=== PATIENT | female | born 1945 | race Caucasian/White ===

== ENCOUNTER 2016-08-11 06:05 | Day surgery (SDC) | payer MEDICARE, BC ==
[2016-08-09 10:50] VITALS: BMI 20.2
[~2016-08-11 06:05] MED LIST: DEXAMETHASONE SOD PHOSPHATE 10 MG/ML 1 ML VIAL IV ONE; HYDROmorphone 1 MG/ML 1 ML SYRINGE IVP PRN; LACTATED RINGERS 1,000 ML IV SCH; MIDAZOLAM 2 MG/2 ML VIAL IV PRN; ONDANSETRON 4 MG/2 ML VIAL IVP ONE; ceFAZolin 2 GM in SODIUM CHLORIDE 0.9% 100 ML IVPB ONE
[2016-08-11 06:23] VITALS: RESP 16
[2016-08-11] MEDS ORDERED: LIDOCAINE 1% 20 ML VIAL (10MG/ML) FOR IV START INTRADERMA ONE (06:46)
[2016-08-11] MEDS ORDERED: MIDAZOLAM 2 MG/2 ML VIAL ONE (07:28)
[2016-08-11] MEDS ORDERED: fentaNYL (PF) 50 MCG/ML 2 ML AMP ONE (07:28)
[2016-08-11] MEDS ORDERED: ROPIVACAINE 5 MG/ML 30 ML VIAL ONE (07:28)
[2016-08-11] MEDS ORDERED: PHENYLEPHRINE-0.9% NACL SYG 1 MG/10 ML SYRINGE ONE (07:28)
[2016-08-11] MEDS ORDERED: PROPOFOL 10 MG/ML 20 ML VIAL IV ONE (07:28)
[2016-08-11] MEDS ORDERED: LIDOCAINE 1% INJ 10MG/ML (20 ML MDV) ONE (07:28)
[2016-08-11] MEDS ORDERED: SUCCINYLCHOLINE CHLORIDE 100 MG/5 ML SYR IV ONE (07:28)
[2016-08-11] MEDS ORDERED: ceFAZolin 1,000 MG in SODIUM CHLORIDE 0.9% 1,000 ML IRRIGATION ONE (08:00)
[2016-08-11] MEDS ORDERED: hydrOXYzine PAMOATE 25 MG CAP PO PRN (08:59)
[2016-08-11] MEDS ORDERED: TEMAZEPAM 15 MG CAP PO PRN (08:59)
[2016-08-11] MEDS ORDERED: HYDROcodone/APAP 5-325MG 1 EACH TAB PO PRN ×2 (08:59)
[2016-08-11] MEDS ORDERED: ONDANSETRON 4 MG/2 ML VIAL IVP PRN (08:59)
[2016-08-11] MEDS ORDERED: HYDROmorphone 1 MG/ML 1 ML SYRINGE IVP PRN ×3 (08:59)
--- NOTE | 2016-08-11 09:08 | FL ---
FLUOROSCOPY 10 of fluoroscopy time were utilized during internal fixation of the right wrist. 2 images document t he procedure.
--- NOTE | 2016-08-11 11:20 | XR ---
FLUOROSCOPY 10 seconds of fluoroscopy time were utilized during internal fixation of the right breast. 2 images d ocument the procedure.
[2016-08-11] MEDS: SENNOSIDES-DOCUSATE SODIUM 1 EACH TAB PO PRN (15:33)
[2016-08-11] MEDS: ceFAZolin 2 GM in SODIUM CHLORIDE 0.9% 100 ML IVPB SCH (15:34)
[2016-08-11] MEDS: LACTATED RINGERS 1,000 ML IV SCH ×2 (15:40→20:27)
--- NOTE | 2016-08-11 17:55 | OP ---
DATE OF SERVICE: 08/11/2016 SURGEON: JI CHANG DO WASTE CHOPPER: Teresita SOLIS PREOPERATIVE DIAGNOSIS: Volar angulated fracture of the distal right radius. POSTOPERATIVE DIAGNOSIS: Volar angulated fracture of the distal right radius back to the ulnar styloid. OPERATION: Open reduction internal fixation utilizing a volar plate for a comminuted displaced fracture of the distal right radius. ANESTHESIA: ESTIMATED BLOOD LOSS: SPECIMENS REMOVED: COMPLICATIONS: OPERATIVE FINDINGS: DESCRIPTION OF PROCEDURE: Patient was taken to the operative suite and placed in supine position. General anesthesia was performed by the department of anesthesiology. Hibiclens prep was carried out over the right arm and hand. Sterile drapes were applied in the usual manner. Longitudinal incision was developed along the FCR tendon and proximal and to the fracture. Gentle dissection was carried out through the tissue around the area. Tissue gently elevated off the fracture. Reduction was undertaken. A small volar plate was initiated at this time and secured with 2 pegs. Appropriate reduction and position of the plate was noted. Evaluated with x ray. The distal locking pegs secured into place. Proximal x-rays were obtained and appropriate reduction noted. Final x-rays were obtained documenting all of the positions of the plate and screws and the area was irrigated with antibiotic solution. Subcutaneous tissue was approximated with 3-0 Vicryl suture in interrupted fashion. Skin was approximated with 4-0 nylon suture in interrupted fashion. Betadine, Adaptic and sterile pressure dressings were applied. She was placed in a well-padded OCL splint and taken to the recovery room in stable satisfactory postoperative condition. GROSS PATHOLOGY: There was comminuted displaced distal radial fracture. ANNALISA
[2016-08-12] MEDS: ceFAZolin 2 GM in SODIUM CHLORIDE 0.9% 100 ML IVPB SCH (00:26)
[2016-08-12 03:32] VITALS: BP 123/60; PULSE 76; TEMP 96.7
[2016-08-12] MEDS: LACTATED RINGERS 1,000 ML IV SCH (06:57)
[2016-08-12] MEDS: SENNOSIDES-DOCUSATE SODIUM 1 EACH TAB PO PRN (08:03)
--- NOTE | 2016-08-12 10:35 | P.DS ---
Providers Expected date of discharge: 08/12/16 Attending physician: Mars Ortiz Primary care physician: Bandar Grewal - Discharge Diagnosis(es) (1) Closed fracture of right distal radius Current Visit: Yes Status: Acute Hospital Course: This is a pleasant is a very pleasant 71-year-old female who presented with a right angulated fracture of the distal radius. She admitted for open reduction internal fixation utilizing a volar brachial plate for comminuted displaced fracture of the right distal radius. The patient tolerated the procedure well and did well postoperatively. He has maintained a sling for the right upper extremity. She is able to flex and extend her right elbow and all fingers the right hand without significant difficulty. Condition on day of discharge stable. Patient states she is ready for discharge. Patient will be discharged home. Patient was cleared preoperatively for surgery. Patient currently denies any nausea, vomiting, fever, or chills. Patient is eating and voiding freely without difficulty. Patient should keep a dressing over the right wrist clean, dry, and intact. She may apply ice and elevate the wrist as needed for comfort and support. We will plan to have her follow up with Dr. Ortiz on 2016 at 2:00 PM for further evaluation. He may use a sling for comfort and support as needed. She given a discharge prescription for Keflex 500 mg 1 tab every 8 hours, [place] 5 mg/325 mg 1-2 tabs every 4-6 hours, and Senokot 2 tabs daily. Physical Exam on day of discharge: Patient is awake, alert, and oriented 3 Vital signs stable Good chest excursion with deep inspiration and expiration Abdomen soft nontender No signs or symptoms of DVT; no calf pain Evidence of a large bruise at the chin on the right side Postoperative dressing clean, dry, and intact over the right wrist Evidence of some generalized swelling of the fingers and thumb of the right hand Able flex and extend all fingers and thumb of the right hand without significant difficulty Neurovascularly intact right upper extremity Active for range of motion of the right shoulder and elbow without significant difficulty Admission Specialist strength, thumb strength, interosseous strength, biceps strength, triceps strength, and shoulder strength positive sustained on the left Procedures: Open reduction internal fixation utilizing a volar brachial plate for comminuted displaced fracture of the right distal radius Patient Condition at Discharge: Stable Plan - Discharge Summary New Discharge Prescriptions: Cephalexin [Keflex] 500 mg PO Q8HR #15 cap HYDROcodone/APAP 5-325MG [[place] 5] 1 - 2 each PO Q4-6H PRN #30 tab PRN Reason: Pain Sennosides-Docusate Sodium [Senokot-S] 2 tab PO DAILY #30 tablet Discharge Medication List Aspirin 81 mg PO DAILY 12/05/13 [History] Atorvastatin [Lipitor] 20 mg PO HS 08/09/16 [History] Cephalexin [Keflex] 500 mg PO Q8HR #15 cap 08/11/16 [Rx] HYDROcodone/APAP 5-325MG [[place] 5] 1 - 2 each PO Q4-6H PRN #30 tab 08/11/16 [Rx] Sennosides-Docusate Sodium [Senokot-S] 2 tab PO DAILY #30 tablet 08/11/16 [Rx] Follow up Appointment(s)/Referral(s): Mars Ortiz DO [Doctor of Osteopathic Medicine] - 08/21/16 2:00 pm (10-14 days) Activity/Diet/Wound Care/Special Instructions: Keep dressing and splint clean, dry, and intact Elevate and ice right wrist May wear sling for comfort if needed Follow up in 10-[address] Ortiz [facility] with any questions or concerns, . Discharge Disposition: HOME SELF-CARE
== END 2016-08-12 11:11 | disposition home or self-care (01) ==
LOC: OR 06:05 → 3SUR 08:49 → OR 08-12 11:11
PROVIDERS: ATTEND Orthopaedic Surgery
DX: S52.501A Unspecified fracture of the lower end of right radius, initial encounter for closed fracture (principal); W18.30XA Fall on same level, unspecified, initial encounter; E78.5 Hyperlipidemia, unspecified; Z95.818 Presence of other cardiac implants and grafts; K21.9 Gastro-esophageal reflux disease without esophagitis; Z79.82 Long term (current) use of aspirin; Z79.899 Other long term (current) drug therapy
CPT/HCPCS: 73100; 25607; C1713 ×2; J2250; J1100; J0690 ×3; J2405; J2001; J3010; J2795; J2370; J0330; J2704

== ENCOUNTER 2017-01-29 14:40 | Day surgery (SDC) | payer MEDICARE, BC ==
[2017-01-24 09:54] VITALS: BMI 19.6
[~2017-01-29 14:40] MED LIST changes: -DEXAMETHASONE SOD PHOSPHATE 10 MG/ML 1 ML VIAL IV ONE; -HYDROmorphone 1 MG/ML 1 ML SYRINGE IVP PRN; -LACTATED RINGERS 1,000 ML IV SCH; -MIDAZOLAM 2 MG/2 ML VIAL IV PRN; -ONDANSETRON 4 MG/2 ML VIAL IVP ONE; +SODIUM CHLORIDE 0.9% 1,000 ML IV SCH
[2017-01-29 15:03] VITALS: TEMP 98.2
[2017-01-29] MEDS ORDERED: MIDAZOLAM 2 MG/2 ML VIAL ONE (17:34)
[2017-01-29] MEDS ORDERED: MIDAZOLAM 2 MG/2 ML VIAL IV ONE (17:35)
[2017-01-29] MEDS ORDERED: LIDOCAINE 1% INJ 10MG/ML (20 ML MDV) SQ ONE (17:37)
[2017-01-29] MEDS ORDERED: LIDOCAINE 2% INJ 20 MG/ML SQ ONE (17:37)
--- NOTE | 2017-01-29 17:53 | P.PCN ---
Preoperative Diagnosis: Patient underwent EP procedure under conscious sedation/moderate sedation, monitoring of the level of consciousness and physiologic parameters including but not limited to vital signs and oxygenation. Patient tolerated the procedure well without any acute complications. Start time: 1734 Stop time: 1747 Loop explant under sedation and local anesthesia. Patient was brought to the EP lab in a fasting state. Written informed consent was obtained prior to the procedure. The subcutaneous device was successfully explanted under local anesthesia. Preoperative antibiotics were administered. The wound was closed in layers and dressed per protocol. Result: Successful loop monitor explantation. Postoperative Diagnosis: Procedure(s) Performed: Implants: Condition: stable Disposition: same day Indications for Procedure: Operative Findings: Description of Procedure:
[2017-01-29 18:14] VITALS: BP 136/63; RESP 16
[2017-01-29 18:43] VITALS: PULSE 76
== END 2017-01-29 18:35 | disposition home or self-care (01) ==
LOC: CATHEP 14:40
PROVIDERS: ATTEND Internal Medicine Clinical Cardiac Electrophysiology
DX: Z45.09 Encounter for adjustment and management of other cardiac device (principal); R55 Syncope and collapse; E78.00 Pure hypercholesterolemia, unspecified; I65.23 Occlusion and stenosis of bilateral carotid arteries; Z87.891 Personal history of nicotine dependence; Z79.82 Long term (current) use of aspirin; Z79.899 Other long term (current) drug therapy
CPT/HCPCS: 33284; 99152; J2001; J2250; J0690

== ENCOUNTER 2020-12-16 08:15 | Day surgery (SDC) | payer BC, MEDICARE ==
[2020-12-13 11:49] VITALS: BMI 19.7
[~2020-12-16 08:15] MED LIST changes: +LACTATED RINGERS 1,000 ML IV SCH; -SODIUM CHLORIDE 0.9% 1,000 ML IV SCH; -ceFAZolin 2 GM in SODIUM CHLORIDE 0.9% 100 ML IVPB ONE
[2020-12-16 08:47] VITALS: TEMP 98.1
[2020-12-16] MEDS ORDERED: LIDOCAINE 1% INJ 10MG/ML (20 ML MDV) ONE (09:40)
[2020-12-16] MEDS ORDERED: MIDAZOLAM 2 MG/2 ML VIAL ONE (09:40)
[2020-12-16] MEDS ORDERED: PROPOFOL 10 MG/ML 20 ML VIAL IV ONE (09:40)
--- NOTE | 2020-12-16 10:22 | P.PCN ---
Date of Procedure: 12/16/20 Description of Procedure: BRIEF HISTORY: Patient is a 75-year-old female presenting for outpatient colonoscopy for screening for malignant neoplasm in the colon. Last colonoscopy 10 years ago. She denies history of falls. She does report some intermittent bright red blood per rectum and positive stool testing for occult blood. PROCEDURE PERFORMED: Colonoscopy. PREOPERATIVE DIAGNOSIS: Screening for malignant neoplasm of the colon, last colonoscopy 10 years ago per patient report. ESTIMATED BLOOD LOSS: Minimal. IV sedation per Anesthesia. PROCEDURE: After informed consent was obtained, the patient, was brought into the endoscopy unit. IV sedation was administered by Anesthesia under continuous monitoring. Digital rectal examination was normal. Initially the Olympus pediatric flexible video colonoscope was then inserted in the rectum, gradually advanced into the cecum without any difficulty. Careful examination was performed as the scope was gradually being withdrawn. Ileocecal valve and the appendiceal orifice were visualized and appeared normal. Prep was excellent. Mucosa of the cecum, ascending colon, transverse colon, descending colon, sigmoid colon, and rectum appeared normal. Retroflexion was performed in the rectum and no lesions were seen, and low-grade internal hemorrhoids noted. The patient tolerated the procedure well. IMPRESSION: Normal-appearing colon from rectum to cecum. Internal hemorrhoids. RECOMMENDATIONS: Findings of this examination were discussed with the patient and her family. Okay to resume diet. Okay to resume medications. Recommend local hemorrhoidal care with warm baths, topical steroid therapy, Tucks pads and stool softeners if further bleeding is noted.
[2020-12-16 10:35] VITALS: BP 107/64; PULSE 78; RESP 18
== END 2020-12-16 10:51 | disposition home or self-care (01) ==
LOC: ORWHC2ENDO 08:15
PROVIDERS: ATTEND Internal Medicine
DX: K64.8 Other hemorrhoids (principal); K62.5 Hemorrhage of anus and rectum; R19.5 Other fecal abnormalities; I10 Essential (primary) hypertension; E78.5 Hyperlipidemia, unspecified; Z87.891 Personal history of nicotine dependence; R55 Syncope and collapse; Z90.89 Acquired absence of other organs; Z90.710 Acquired absence of both cervix and uterus; Z98.890 Other specified postprocedural states; Z79.82 Long term (current) use of aspirin; Z79.899 Other long term (current) drug therapy
CPT/HCPCS: 45378; J2250; J2001; J2704

== ENCOUNTER → 2021-06-20 | Outpatient (CLI) | payer MEDICARE ==
--- NOTE | 2021-06-20 22:00 | CT ---
EXAMINATION TYPE: CT abdomen pelvis wo con DATE OF EXAM: 06/20/2021 HISTORY: Gross hematuria. CT DLP: 241.7 mGycm. Automated Exposure Control for Dose Reduction was Utilized. TECHNIQUE: CT scan of the abdomen and pelvis is performed without oral or IV contrast. COMPARISON: NONE FINDINGS: Within the limitations of a non-contrast study, the following observations are made. LUNG BASES: There is 6 x 3 mm lateral left basilar nodule axial image 10. LIVER/GB: Prominent left hepatic lobe. No biliary dilatation.. PANCREAS: No significant abnormality is seen. SPLEEN: No significant abnormality is seen. ADRENALS: No significant abnormality is seen. KIDNEYS: No right-sided renal calculus or hydronephrosis. Single 2 mm calculus upper pole left kidney axial image 26. Moderate to severe left-sided hydronephrosis due to obstructing 9 mm calculus at lef t UPJ coronal image 36. No intraluminal calculus in the bladder. BOWEL: Suboptimal evaluation without enteric contrast. No suspicious small or large bowel dilatation. GENITAL ORGANS: Suboptimal evaluation of uterus due to artifact from metallic hardware left hip. Uter us suspected surgically absent or markedly atrophic in appearance. Scattered bilateral pelvic phlebol iths right more numerous than left are noted. LYMPH NODES: No greater than 1cm abdominal or pelvic lymph nodes are appreciated. OSSEOUS STRUCTURES: Metallic hardware from left hip arthroplasty causes streak artifact limiting eval uation of pelvic structures. Osseous structures are demineralized. Underlying scoliosis is seen. Bila teral pars defect L5 level with grade 1 anterolisthesis L5 on S1. Severe disc space narrowing L5-S1 l evel. Moderate to severe height loss L1 vertebra. Mild to moderate height loss L3 vertebra. Findings consistent with chronic compression type fractures. OTHER: Moderate calcified plaque of the aorta extends into branch vessels. IMPRESSION: Pbastype-li-owrkac left-sided hydronephrosis due to obstructing 9 mm calculus at left UPJ .
== END | disposition home or self-care (01) ==
LOC: RADCTMAIN 15:24
PROVIDERS: ATTEND Urology
DX: N13.2 Hydronephrosis with renal and ureteral calculous obstruction (principal)
CPT/HCPCS: 74176

== ENCOUNTER → 2021-07-11 | Day surgery (SDC) | payer MEDICARE ==
--- NOTE | 2021-07-10 10:44 | P.GSHP ---
History of Present Illness H&P Date: 07/10/21 76 female with a 9mm left proximal ureteral stone causing pain and obstruction who come for eswl left. The risks and alternatives have been discussed She comes for this procedure. - Constitutional Constitutional: Denies chills, Denies fever - EENT Eyes: denies blurred vision, denies pain Ears, nose, mouth and throat: Denies headache, Denies sore throat - Cardiovascular Cardiovascular: Denies chest pain, Denies shortness of breath - Respiratory Respiratory: Denies cough, Denies 7 - Gastrointestinal Gastrointestinal: Denies abdominal pain, Denies diarrhea, Denies nausea, Denies vomiting - Genitourinary (Female) Genitourinary: Denies dysuria, Denies hematuria - Genitourinary (Male) Genitourinary: Denies dysuria, Denies hematuria - Musculoskeletal Musculoskeletal: Denies myalgias - Integumentary Integumentary: Denies pruritus, Denies rash - Neurological Neurological: Denies numbness, Denies weakness - Psychiatric Psychiatric: Denies anxiety, Denies depression - Endocrine Endocrine: Denies fatigue, Denies weight change Past Medical History Past Medical History: Hyperlipidemia, Hypertension, Musculoskeletal Disorder Additional Past Medical History / Comment(s): Osteoporosis. OCC SL ARRYTHMIA History of Any Multi-Drug Resistant Organisms: None Reported Past Surgical History: Appendectomy, Hysterectomy, Orthopedic Surgery, Tonsillectomy Additional Past Surgical History / Comment(s): Left arm,shoulder,R & L wrists ; ORIF left leg, ORIF left hip. LOOP RECORDER. LOOP RECORDER REMOVAL (FOUND NO ARRYTHMIA). COLONOSCOPY Past Anesthesia/Blood Transfusion Reactions: No Reported Reaction Past Psychological History: Anxiety Smoking Status: Former smoker Past Alcohol Use History: Daily Additional Past Alcohol Use History / Comment(s): SMOKED AGE [age], 1 PPD, QUIT 1986. DRINKS 2-3 ALCOHOLIC DRINKS DAILY WITH DINNER Past Drug Use History: None Reported - Past Family History Father Family Medical History: Cancer Sister(s) Family Medical History: Cancer Medications and Allergies Home Medications Medication Instructions Recorded Confirmed Type Aspirin 81 mg PO DAILY 12/05/13 07/08/21 History Atorvastatin [Lipitor] 20 mg PO HS 08/09/16 07/08/21 History Amitriptyline HCl 25 mg PO HS 12/13/20 07/08/21 History Multivitamins, Thera [Multivitamin 1 tab PO DAILY 12/13/20 07/08/21 History (formulary)] lisinopriL [Zestril] 5 mg PO HS 12/13/20 07/08/21 History Cholecalciferol (Vitamin D3) 150 mcg PO DAILY 07/08/21 07/08/21 History [Vitamin D3 (3000 Iu)] Allergies Allergy/AdvReac Type Severity Reaction Status Date / Time No Known Allergies Allergy Verified 07/08/21 09:32 Surgical - Exam - General well developed, well nourished, no distress - Eyes normal ocular movement, no icteric - ENT no hearing loss, no congestion - Neck no masses, trachea midline - Respiratory normal respiratory effort, clear to auscultation - Abdomen Abdomen: soft, non tender, no guarding, no rigid, no rebound - Integumentary no rash, no abnormal pigmentation - Neurologic no disoriented, no combative - Psychiatric oriented to time, oriented to person, oriented to place, speech is normal, memory intact Results - Imaging CT scan - abdomen: report reviewed CT scan - pelvis: image reviewed Assessment and Plan Assessment: Impression: left ureteral stone Plan: eswl left
[~2021-07-11] MED LIST changes: +DEXAMETHASONE SOD PHOSPHATE 4 MG/ML 1 ML VIAL IVP ONE; +LIDOCAINE 1% (10MG/ML) FOR IV START INTRADERMA PRN; +MIDAZOLAM 2 MG/2 ML VIAL ONE; +ONDANSETRON 4 MG/2 ML VIAL IVP ONE; +PROPOFOL 10 MG/ML 20 ML VIAL IV ONE; +fentaNYL (PF) 50 MCG/ML 2 ML AMP ONE
[2021-07-11 07:15] VITALS: RESP 16; TEMP 99
--- NOTE | 2021-07-11 07:40 | XR ---
EXAMINATION TYPE: XR KUB DATE OF EXAM: 07/11/2021 COMPARISON: CT 06/20/2021 INDICATION: Left ureteral calculus TECHNIQUE: Single view abdomen supine view FINDINGS: There is a normal bowel gas pattern. Psoas margins are normal. No organomegaly is present. There may be some prominence the left kidney. Patient's left ureteropelvic junction stone is not identified on the plain film. IMPRESSION: 1. Suspicious left ureteral calcification is not identified.
--- NOTE | 2021-07-11 08:05 | P.OP ---
Date of Procedure: 07/11/21 Preoperative Diagnosis: lleft ureteral stone Postoperative Diagnosis: Same Procedure(s) Performed: Extracorporeal shockwave lithotripsy, 3000 shocks at energy level Anesthesia: MAC Surgeon: Farhat Kruse Estimated Blood Loss (ml): 0 Pathology: none sent Condition: stable Disposition: PACU Indications for Procedure: The patient is 76. She has an 8 mm stone in her left ureter it has moved to the SI joint. She is still in pain. She comes for shockwave lithotripsy. Alternatives have been discussed Description of Procedure: Patient is brought to the operating suite. She is given IV sedation on the lithotripsy table. The stone is seen in 2 views with fluoroscopy. With the Dornier compact delta to 3000 shocks at energy level are administered. The stone fractures nicely. Then procedure the patient's awake and returned recovery in good condition. She'll be discharged home upon recovery and found the office in one week.
[2021-07-11 09:16] VITALS: BP 102/71; PULSE 76
== END | disposition home or self-care (01) ==
LOC: ORWHC2ENDO 05:54
PROVIDERS: ATTEND Urology
DX: N20.1 Calculus of ureter (principal); E78.5 Hyperlipidemia, unspecified; I10 Essential (primary) hypertension; M81.0 Age-related osteoporosis without current pathological fracture; Z87.891 Personal history of nicotine dependence; Z80.9 Family history of malignant neoplasm, unspecified
CPT/HCPCS: 50590; 74018; J2250; J1100; J2405; J3010; J2704

== ENCOUNTER → 2021-07-14 | Outpatient (CLI) | payer MEDICARE ==
--- NOTE | 2021-07-14 10:20 | XR ---
EXAMINATION TYPE: XR KUB DATE OF EXAM: 07/14/2021 Comparison: 07/11/2021 and 06/20/2021 Clinical History: 76-year-old female left-sided kidney stone, N20.1 Findings: Levoconvex scoliosis lumbar spine. Osteopenia. Nonobstructive bowel gas pattern. Moderate stool in th e lower abdomen and pelvis. Small phleboliths in the pelvis on both sides. Left-sided urinary tract s tone not clearly identified. L1 endplate deformities redemonstrated. L5-S1 anterolisthesis apparent o n the frontal view. Left hip hemiarthroplasty partially visualized. Impression: Moderate stool in the lower abdomen and pelvis. Pelvic phleboliths noted. Bowel content may obscure a potential left-sided urinary tract stone.
== END | disposition home or self-care (01) ==
LOC: RADXRMAIN 07:20
PROVIDERS: ATTEND Urology
DX: N20.1 Calculus of ureter (principal); I87.8 Other specified disorders of veins; K56.41 Fecal impaction
CPT/HCPCS: 74018

== ENCOUNTER → 2021-08-02 | Outpatient (CLI) | payer MEDICARE ==
--- NOTE | 2021-08-02 09:56 | XR ---
EXAMINATION TYPE: XR KUB DATE OF EXAM: 08/02/2021 Comparison: 07/14/2021 Clinical History: 76-year-old female N20.1 calculus of ureter Findings: S-shaped scoliosis. Nonobstructive bowel gas pattern. Moderate stool burden. Left hip hemiarthroplast y. Vascular calcifications. No definite suspicious renal calculus is identified though the assessment is limited due to overlying bowel content. Impression: No definite suspicious renal calculus though moderate stool limits the assessment.
== END | disposition home or self-care (01) ==
LOC: RADXRMAIN 07:34
PROVIDERS: ATTEND Urology
DX: N20.1 Calculus of ureter (principal)
CPT/HCPCS: 74018

== ENCOUNTER 2022-01-31 15:42 | Emergency (ER) | payer MEDICARE ==
--- NOTE | 2022-01-31 17:06 | ED ---
General Adult HPI - General Chief complaint: Fall Stated complaint: Fall-L knee/R shoulder injury Time Seen by Provider: 01/31/22 16:50 Source: patient, RN notes reviewed, old records reviewed Mode of arrival: ambulatory Limitations: no limitations - History of Present Illness Initial comments: This is a 76-year-old female presents emergency Department complaining that she tripped over another person's foot and fell. Patient complains about right arm pain left knee pain and left fifth digit pain. Patient also states she has a slight abrasion on the right knee but it does not hurt her and she has full range of motion of the right knee. Patient states she does have full range of motion of the left knee however does cause her a little bit of pain. Patient has no head or neck injuries. Patient states she did not hit her head or neck. Patient denies any chest pain or back pain or abdominal pain. - Related Data Home Medications Medication Instructions Recorded Confirmed Aspirin 81 mg PO DAILY 12/05/13 07/11/21 Atorvastatin [Lipitor] 20 mg PO HS 08/09/16 07/11/21 Amitriptyline HCl 25 mg PO HS 12/13/20 07/11/21 Multivitamins, Thera [Multivitamin 1 tab PO DAILY 12/13/20 07/11/21 (formulary)] lisinopriL [Zestril] 5 mg PO HS 12/13/20 07/11/21 Cholecalciferol (Vitamin D3) 150 mcg PO DAILY 07/08/21 07/11/21 [Vitamin D3 (3000 Iu)] Previous Rx's Medication Instructions Recorded Ketorolac [Toradol] 10 mg PO Q6HR #15 tab 01/31/22 Allergies Allergy/AdvReac Type Severity Reaction Status Date / Time No Known Allergies Allergy Verified 01/31/22 16:23 Review of Systems ROS Statement: Those systems with pertinent positive or pertinent negative responses have been documented in the HPI. ROS Other: All systems not noted in ROS Statement are negative. Past Medical History Past Medical History: Hyperlipidemia, Hypertension, Musculoskeletal Disorder, Syncope Additional Past Medical History / Comment(s): Osteoporosis. HX NEAR SYNCOPAL EPISODES, OCC SL ARRYTHMIA ; History of Any Multi-Drug Resistant Organisms: None Reported Past Surgical History: Appendectomy, Hysterectomy, Orthopedic Surgery, Tonsillectomy Additional Past Surgical History / Comment(s): Left arm,shoulder,R & L wrists ; ORIF left leg, ORIF left hip. LOOP RECORDER.-, LOOP RECORDER REMOVAL, COLONOSCOPY Past Anesthesia/Blood Transfusion Reactions: No Reported Reaction Past Psychological History: No Psychological Hx Reported Smoking Status: Former smoker Past Alcohol Use History: Daily Past Drug Use History: None Reported - Past Family History Father Family Medical History: Cancer Sister(s) Family Medical History: Cancer General Exam - General Exam Comments Initial Comments: GENERAL: Patient is well-developed and well-nourished. Patient is nontoxic and well- hydrated and is in mild distress. ENT: Neck is soft and supple. No significant lymphadenopathy is noted. Oropharynx is clear. Moist mucous membranes. Neck has full range of motion without eliciting any pain. EYES: The sclera were anicteric and conjunctiva were pink and moist. Extraocular movements were intact and pupils were equal round and reactive to light. Eyelids were unremarkable. PULMONARY: Unlabored respirations. Good breath sounds bilaterally. CARDIOVASCULAR: There is a regular rate and rhythm without any murmurs gallops or rubs. ABDOMEN: Soft and nontender with normal bowel sounds. SKIN: Skin is clear with no lesions or rashes and otherwise unremarkable. NEUROLOGIC: Patient is alert and oriented x3. Cranial nerves II through XII are grossly intact. Motor and sensory are also intact. Normal speech, volume and content. Symmetrical smile. MUSCULOSKELETAL: Patient has full range of motion of left however there is some tenderness anteriorly. Patient's this left digit is ecchymotic from the MCP joint to the tip of the finger. Patient's most tender in the middle phalanx. Patient's right shoulder is tender to touch from the mid humerus to the shoulder. There is a area of ecchymosis just distal to the axilla. LYMPHATICS: No significant lymphadenopathy is noted PSYCHIATRIC: Normal psychiatric evaluation. Limitations: no limitations Course Vital Signs 01/31/22 16:21 Temperature 97.5 F L Pulse Rate 88 Respiratory 20 Rate Blood Pressure 112/70 O2 Sat by Pulse 100 Oximetry Medical Decision Making - Medical Decision Making X-ray of the finger on the left hand has a fracture of fifth middle phalanx X-ray of the humerus shows a comminuted proximal humeral fracture Dr. Madera reviewed the films and will see the patient on Sunday or Sunday. X-ray of the knee shows no acute abnormality. Disposition Clinical Impression: Fall, Humerus fracture, Fracture of phalanx of digit of hand Disposition: HOME SELF-CARE Condition: Good Instructions (If sedation given, give patient instructions): Fall Prevention (ED), Arm Fracture in Adults (ED) Prescriptions: Ketorolac [Toradol] 10 mg PO Q6HR #15 tab Is patient prescribed a controlled substance at d/c from ED?: No Referrals: Fernando Madera DO [Doctor of Osteopathic Medicine] - 02/03/22 Time of Disposition: 19:31
--- NOTE | 2022-01-31 17:56 | XR ---
EXAMINATION TYPE: XR humerus RT DATE OF EXAM: 01/31/2022 COMPARISON: NONE HISTORY: Fall. Pain TECHNIQUE: 3 views FINDINGS: There is acute comminuted fractures of the right humeral neck. There is some impaction. The re is a large chip fracture of the greater tuberosity humerus. There is some inferior subluxation of the humeral head. Scapula is intact. AC joint is intact. IMPRESSION: Acute comminuted humeral neck fracture.
--- NOTE | 2022-01-31 17:57 | XR ---
EXAMINATION TYPE: XR knee complete LT DATE OF EXAM: 01/31/2022 COMPARISON: NONE HISTORY: Pain. Fall TECHNIQUE: 3 view FINDINGS: There is plate with screws fixating the proximal tibia. I see no acute fracture nor disloca tion. There is a knee joint effusion. IMPRESSION: Old fracture of the proximal tibia. No acute fracture seen. Knee joint effusion.
--- NOTE | 2022-01-31 18:04 | XR ---
EXAMINATION TYPE: XR finger LT DATE OF EXAM: 01/31/2022 COMPARISON: NONE HISTORY: Pain. TECHNIQUE: 4 views FINDINGS: 4 views of the left little finger were obtained. There is transverse fracture across the he ad of the middle phalanx of the little finger left hand. No significant displacement. There is slight anterior angulation on the lateral view. There is some deformity of the base of the distal phalanx c onsistent with an old fracture or hypertrophic osteoarthritis. IMPRESSION: Acute fracture of the neck of the head of the middle phalanx little finger left hand.
[2022-01-31] MEDS ORDERED: ACET/COD 300 MG/30 MG STARTER PACK 6 TAB BTL PO STA (19:32)
--- NOTE | 2022-01-31 19:39 | CT ---
EXAMINATION TYPE: CT shoulder RT wo con DATE OF EXAM: 01/31/2022 COMPARISON: None HISTORY: Rt shoulder injury CT DLP: 305.3 mGycm Automated exposure control for dose reduction was used. Images obtained from the top of the AC joint to the mid shaft of the humerus with no contrast. There is comminuted fracture of the right femoral neck with impaction there is large fracture of the greater tuberosity of the humerus. There is inferior dislocation of the major portion of the humeral head. The scapula is intact. AC joint is intact. Humeral shaft appears intact. IMPRESSION: Comminuted impacted humeral neck fracture. Inferior humeral head dislocation.
[2022-01-31 19:43] VITALS: BP 162/64; PULSE 78; RESP 18; TEMP 98.2
== END 2022-01-31 19:30 | disposition home or self-care (01) ==
LOC: EC 15:42
DX: S42.251A Displaced fracture of greater tuberosity of right humerus, initial encounter for closed fracture (principal); S62.627A Displaced fracture of middle phalanx of left little finger, initial encounter for closed fracture; S40.022A Contusion of left upper arm, initial encounter; I10 Essential (primary) hypertension; E78.5 Hyperlipidemia, unspecified; Z87.891 Personal history of nicotine dependence; Z79.82 Long term (current) use of aspirin; Z79.899 Other long term (current) drug therapy; W03.XXXA Other fall on same level due to collision with another person, initial encounter
CPT/HCPCS: 99284

== ENCOUNTER → 2022-02-02 | Outpatient (CLI) | payer MEDICARE ==
[2022-02-02 13:32] LABS: INR 0.9 (<1.2); Partial Thromboplastin Time 22.1 sec (22.0-30.0); Prothrombin Time 9.6 sec (9.0-12.0)
[2022-02-02 18:48] LABS: HCT 31.4 % (37.2-46.3); MCH 30.9 pg (27.0-32.0); MCHC 31.8 g/dL (32.0-37.0); MCV 96.9 fL (80.0-97.0); Mean Platelet Volume 12.9 fL (9.5-12.2); NRBC Per 100 WBC 0 /100 WBCS (0.0-0.0); Platelet Count 203 X 10*3/uL (140-440); RBC 3.24 X 10*6/uL (4.10-5.20); RDW 13.4 % (11.5-14.5); WBC 10.63 X 10*3/uL (4.50-10.00)
[2022-02-02 18:55] LABS: African American GFR (CKD) 104.1 (60.0-200.0); Albumin 4.4 g/dL (3.8-4.9); Anion Gap 12.1 mmol/L (10.00-18.00); Blood Urea Nitrogen 16.8 mg/dL (9.0-27.0); Calcium 9.7 mg/dL (8.7-10.3); Carbon Dioxide 24.9 mmol/L (20.0-27.5); Globulin 2.2 g/dL (1.6-3.3); Non-African American GFR(CKD) 89.8 (60.0-200.0); Potassium 3.9 mmol/L (3.5-5.5); Total Bilirubin 0.4 mg/dL (0.30-1.20); Total Protein 6.6 g/dL (6.2-8.2)
[2022-02-02 20:16] LABS: Appearance,Urine Turbid (Clear); Bacteria,Urine None Seen /HPF (None Seen); Bilirubin,Urine Negative (Negative); Blood,Urine Negative (Negative); Calcium Oxalate Crystals,Urine Present /LPF (None Seen); Color,Urine Yellow (Yellow); Ketones,Urine 40 mg/dL (Negative); Nitrite,Urine Negative (Negative); PH, Urine 5.5 (5.0-8.0); Specific Gravity,Urine 1.021 (1.001-1.030)
== END | disposition home or self-care (01) ==
LOC: LABPAT 12:06
PROVIDERS: ATTEND Orthopaedic Surgery Hand Surgery
DX: Z01.818 Encounter for other preprocedural examination (principal); S42.209A Unspecified fracture of upper end of unspecified humerus, initial encounter for closed fracture; X58.XXXA Exposure to other specified factors, initial encounter
CPT/HCPCS: 36415; 80053; 81001; 85027; 85610; 85730; 87070; 93005

== ENCOUNTER 2022-02-06 11:30 | Observation (INO) | payer MEDICARE ==
[2022-02-06] MEDS ORDERED: ONDANSETRON 4 MG/2 ML VIAL ONE (12:08)
[2022-02-06] MEDS ORDERED: LACTATED RINGERS 1,000 ML IV ONE ×3 (12:08→15:16)
[2022-02-06] MEDS ORDERED: DEXAMETHASONE SOD PHOSPHATE 4 MG/ML 1 ML VIAL IVP ONE (12:10)
[2022-02-06] MEDS ORDERED: MIDAZOLAM 2 MG/2 ML VIAL IVP ONE (12:17)
[2022-02-06] MEDS ORDERED: SUCCINYLCHOLINE CHLORIDE 200 MG/10 ML VIAL IV ONE (12:25)
[2022-02-06] MEDS ORDERED: ROPIVACAINE 5 MG/ML 30 ML VIAL ONE (12:25)
[2022-02-06] MEDS ORDERED: MIDAZOLAM 2 MG/2 ML VIAL ONE (12:25)
[2022-02-06] MEDS ORDERED: fentaNYL (PF) 50 MCG/ML 2 ML AMP ONE (12:25)
[2022-02-06] MEDS ORDERED: PHENYLEPHRINE-0.9% NACL SYG 1,000 MCG/10 ML SYRINGE ONE (12:25)
[2022-02-06] MEDS ORDERED: ETOMIDATE 2 MG/ML 10 ML VIAL ONE (12:25)
[2022-02-06] MEDS ORDERED: ePHEDrine 50 MG/ML 1 ML VIAL ONE (12:25)
[2022-02-06] MEDS ORDERED: WATER FOR INJECTION, STERILE 10 ML VIAL IV ONE (12:25)
[2022-02-06] MEDS ORDERED: LIDOCAINE 2% INJ 20 MG/ML (2 ML VIAL) ONE (12:25)
[2022-02-06] MEDS ORDERED: ceFAZolin 1,000 MG in SODIUM CHLORIDE 0.9% 1,000 ML IRRIGATION ONE (12:29)
[2022-02-06] MEDS ORDERED: LIDOCAINE 1%-EPI 1:100,000 20 ML VIAL SQ ONE (12:58)
[2022-02-06] MEDS ORDERED: BUPIVACAINE (PF) 0.5% 30 ML VIAL SQ ONE (12:58)
--- NOTE | 2022-02-06 13:27 | P.ANPRN ---
Procedure Note - Anesthesia - Nerve Block Performed Right Interscalene Time Out Performed: Yes (12:16) Date of Procedure: 02/06/22 Procedure Start Time: : Procedure Stop Time: Location of Patient: PreOp Indication: Acute Post-Operative Pain, Requested by Surgeon (Dr Sosa) Sedation Type: Sedate with meaningful contact maintained Preparation: Sterile Prep Position: Supine Catheter: None Needle Types: Pajunk Needle Gauge: Other (see comment) (22g) Ultrasound used to visualize needle placement: Yes Ultrasound used to observe medication spread: Yes Injectate: 0.5% Ropivacaine (see comment for volume) (18cc) Blood Aspirated: No Pain Paresthesia on Injection Noted: No Resistance on Injection: Normal Image Stored and Saved: Yes Events: Uneventful and Well Tolerated
[2022-02-06] MEDS ORDERED: SENNOSIDES-DOCUSATE SODIUM 1 EACH TAB PO PRN (15:36)
[2022-02-06] MEDS ORDERED: HYDROcodone/APAP 5-325MG 1 EACH TAB PO PRN ×2 (15:36)
[2022-02-06] MEDS ORDERED: HYDROmorphone 0.5 MG/0.5 ML SYRINGE IVP PRN ×2 (15:36)
[2022-02-06] MEDS ORDERED: ONDANSETRON 4 MG/2 ML VIAL IVP PRN (15:36)
--- NOTE | 2022-02-06 18:07 | XR ---
EXAMINATION TYPE: XR shoulder limited RT DATE OF EXAM: 02/06/2022 4:21 PM INDICATION: Patient age:Female; 76 years old; Reason for study: post op reverse total shoulder. Assess alignment; COMPARISON: 01/31/2022 CT and radiographs. TECHNIQUE: The Right shoulder was examined in frontal. . FINDINGS: Reverse right total shoulder arthroplasty changes. Subcutaneous lucencies consistent with post surgic al changes. No evidence of acute fracture. Prosthesis is in good alignment and intact. IMPRESSION: Right shoulder arthroplasty changes are in good anatomic alignment and intact.
[2022-02-06] MEDS: Acetaminophen-Codeine 300-30mg TAB PO PRN (21:20)
[2022-02-06] MEDS: LACTATED RINGERS 1,000 ML IV SCH (21:23)
[2022-02-06] MEDS: HYDROmorphone 0.5 MG/0.5 ML SYRINGE IVP PRN (23:37)
[2022-02-07] MEDS: ATORVASTATIN 40 MG TAB PO SCH ×2 (01:06→09:36)
[2022-02-07] MEDS: AMITRIPTYLINE HCL 25 MG TAB PO SCH ×2 (01:06→21:10)
[2022-02-07] MEDS: HYDROmorphone 0.5 MG/0.5 ML SYRINGE IVP PRN ×2 (02:25→07:41)
[2022-02-07] MEDS: MULTIVITAMINS, THERA 1 EACH TAB PO SCH (09:36)
[2022-02-07] MEDS: lisinopriL 5 MG TAB PO SCH (09:36)
[2022-02-07] MEDS: ASPIRIN 81 MG PO SCH (09:36)
[2022-02-07] MEDS: CHOLECALCIFEROL 25 MCG (1000 IU) TABLET PO SCH (09:36)
--- NOTE | 2022-02-07 09:57 | P.PN ---
Subjective Progress Note Date: 02/07/22 This patient is a 76-year-old female who is status-post reverse right total shoulder arthroplasty and ORIF left little finger on 02/06/[address] Sosa. Today is post-operative day #1. She is examined bedside. She recently received a dose of IV Dilaudid. She states she is very sleepy and feels too weak to get out of bed right now. Per nursing, she has been using a bed goodrich overnight. Her right upper extremity is currently immobilized in a sling. She denies chest pain, shortness of breath. No additional complaints at this time. Vital signs stable. Objective - Vital Signs Vital signs: Vital Signs Temp 98.8 F 02/07/22 07:40 Pulse 91 02/07/22 09:36 Resp 19 02/07/22 07:40 BP 107/64 02/07/22 09:36 Pulse Ox 96 02/07/22 07:40 FiO2 Intake & Output 02/06/22 02/07/22 02/07/22 18:59 06:59 18:59 Intake Total 1351 Output Total 150 Balance 1201 Weight 51.2 kg Intake: IV 1351 Output: Estimated Blood Loss 150 Other: Voiding Method Bedpan Bedpan Bedpan # Voids 1 4 - Exam On examination, the patient is sitting up in bed in no apparent. She is alert and orientated x3. She appears very sleepy at this time. Right upper extremity immobilized in a sling. On inspection of the right shoulder, there is a Prevena wound vac in place that has a good seal at this time. Motor and sensory function intact right upper extremity. Radial pulse easily palpable. On inspection of the left hand, there is a Coban dressing over the little finger that is clean, dry, and intact. Assessment and Plan Assessment: Status-post reverse right total shoulder arthroplasty and ORIF left little finger on 02/06/[address] Sosa. Post-operative day #1. Plan: - Keep right upper extremity immobilized in a sling. No [id number] of right shoulder at this time. Prescription placed for shoulder brace and case management consulted to obtain. - Keep operative dressing in place on left little finger. Prevena wound vac should remain in place over right shoulder for 1 week. - Physical therapy consulted to increase mobilization. - Pain management as needed. Decrease use of IV diluadid as tolerated. - Internal medicine for huong-operative medical management. - Anticipate discharge home tomorrow.
[2022-02-07] MEDS: LACTATED RINGERS 1,000 ML IV SCH (17:14)
[2022-02-07] MEDS: Acetaminophen-Codeine 300-30mg TAB PO PRN (17:51)
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
[2022-02-07] MEDS: PANTOPRAZOLE 40 MG/10 ML VIAL IVP SCH (21:10)
[2022-02-08] MEDS: ASPIRIN 81 MG PO SCH (10:11)
[2022-02-08] MEDS: MULTIVITAMINS, THERA 1 EACH TAB PO SCH (10:11)
[2022-02-08] MEDS: CHOLECALCIFEROL 25 MCG (1000 IU) TABLET PO SCH (10:11)
[2022-02-08] MEDS: ATORVASTATIN 40 MG TAB PO SCH (10:11)
[2022-02-08] MEDS: lisinopriL 5 MG TAB PO SCH (10:14)
[2022-02-08] MEDS: PANTOPRAZOLE 40 MG/10 ML VIAL IVP SCH (10:21)
[2022-02-08 10:29] LABS: Basophils # (A) 0.02 X 10*3/uL (0.00-0.10); Basophils % (A) 0.2 %; Eosinophils # (A) 0.03 X 10*3/uL (0.04-0.35); Eosinophils % (A) 0.3 %; HCT 23.9 % (37.2-46.3); HGB 7.7 g/dL (12.0-15.0); Immature Grans, Automated 0.3 %; Lymphocytes # (A) 1.23 X 10*3/uL (0.90-5.00); Lymphocytes % (A) 11.8 %; MCH 31.4 pg (27.0-32.0); MCHC 32.2 g/dL (32.0-37.0); MCV 97.6 fL (80.0-97.0); Mean Platelet Volume 12.3 fL (9.5-12.2); Monocytes # (A) 1.11 X 10*3/uL (0.20-1.00); Monocytes % (A) 10.6 %; NRBC Per 100 WBC 0 /100 WBCS (0.0-0.0); Neutrophils # (A) 8.04 X 10*3/uL (1.80-7.70); Neutrophils % (A) 76.8 %; Platelet Count 234 X 10*3/uL (140-440); RBC 2.45 X 10*6/uL (4.10-5.20); RDW 13.2 % (11.5-14.5); WBC 10.46 X 10*3/uL (4.50-10.00)
[2022-02-08] MEDS ORDERED: PANTOPRAZOLE 40 MG TABLET PO SCH (10:30)
[2022-02-08 10:50] VITALS: RESP 14
[2022-02-08 10:57] LABS: African American GFR (CKD) 118.9 (60.0-200.0); Anion Gap 9.4 mmol/L (10.00-18.00); BUN/Creat Ratio 23.5 Ratio (12.00-20.00); Blood Urea Nitrogen 9.4 mg/dL (9.0-27.0); Calcium 8.8 mg/dL (8.7-10.3); Carbon Dioxide 26.6 mmol/L (20.0-27.5); Non-African American GFR(CKD) 102.6 (60.0-200.0); Potassium 3.9 mmol/L (3.5-5.5)
--- NOTE | 2022-02-08 13:00 | P.DS ---
Providers Date of admission: 02/07/22 08:05 Expected date of discharge: 02/08/22 Attending physician: Deanna Sosa DO Consults: 02/06/22 15:42 Consult Physician Routine Consulting Provider: Bandar Grewal Jr Consult Reason/Comments: medical management Do you want consulting provider notified?: Yes Primary care physician: [facility] Course: This is a 76-year-old female who has history of recent proximal humerus fracture of the right shoulder and presented to discuss treatment options. After discussion and consideration the patient elects to proceed with reverse total shoulder arthroplasty. She was also found to have a middle phalanx fracture of the left little finger. The pt is seen preoperatively by their family physician and cleared for surgery. The patient is admitted to [facility] on 02/06/2022 for right reverse total shoulder arthroplasty and closed reduction with percutaneous pinning of the left little finger. She is doing well postoperatively. Vital signs and hemoglobin are stable. The pt is able to get up out of bed with minimal assistance and is ambulating. Pain is well controlled. Patient is discharged to home on postoperative day #2 in stable condition. Pertinent Studies: Laboratory Tests 02/08/22 02/08/22 06:54 06:54 WBC 10.46 H RBC 2.45 L Hgb 7.7 L Creatinine 0.4 L Patient Condition at Discharge: Stable Plan - Discharge Summary Discharge Rx Participant: Yes New Discharge Prescriptions: New Sennosides-Docusate Sodium [Senokot-S] 2 tab PO DAILY #30 tablet Acetaminophen-Codeine 300-30mg [Tylenol #3] 1 - 2 tab PO Q4-6H PRN #32 tablet PRN Reason: Pain Continue Aspirin 81 mg PO DAILY Atorvastatin [Lipitor] 40 mg PO HS Multivitamins, Thera [Multivitamin (formulary)] 1 tab PO DAILY Amitriptyline HCl 25 mg PO HS Cholecalciferol (Vitamin D3) [Vitamin D3 (3000 Iu)] 150 mcg PO DAILY No Action Acetaminophen-Codeine 300-30mg [Tylenol w/codeine #3] 1 tab PO Q8H PRN PRN Reason: Pain Discharge Medication List Aspirin 81 mg PO DAILY 12/05/13 [History] Atorvastatin [Lipitor] 40 mg PO HS 08/09/16 [History] Amitriptyline HCl 25 mg PO HS 12/13/20 [History] Multivitamins, Thera [Multivitamin (formulary)] 1 tab PO DAILY 12/13/20 [History] Cholecalciferol (Vitamin D3) [Vitamin D3 (3000 Iu)] 150 mcg PO DAILY 07/08/21 [History] Acetaminophen-Codeine 300-30mg [Tylenol w/codeine #3] 1 tab PO Q8H PRN 02/02/22 [History] Acetaminophen-Codeine 300-30mg [Tylenol #3] 1 - 2 tab PO Q4-6H PRN #32 tablet 02/07/22 [Rx] Sennosides-Docusate Sodium [Senokot-S] 2 tab PO DAILY #30 tablet 02/07/22 [Rx] Follow up Appointment(s)/Referral(s): Teresita Lyons NPC [Nurse Practitioner] - 02/15/22 10:30 am Neal Munson MD [STAFF PHYSICIAN] - 02/13/22 11:30 am [facility] Visiting Nurse, [NON-STAFF] - As Needed Activity/Diet/Wound Care/Special Instructions: Wound vac to right shoulder to be removed in the office in 1 week. May remove splint to left little finger for bathing and washing hands. Then reapply splint. Sling to the right arm. May loosen while in bed and while eating. Ice to shoulder as needed. May shower. Follow up in the office in 1 week. Hold lisinopril, blood pressure soft, reevaluate at follow-up visit with PCP. Discharge Disposition: HOME WITH HOME HEALTH SERVICES
--- NOTE | 2022-02-08 13:40 | P.PN ---
Subjective Progress Note Date: 02/08/22 - History of Present Illness This is 76-year-old female with past medical history of hyperlipidemia, hypertension, osteoarthritis, muscle skeletal disorder, syncope, osteo-porosis, loop recorder-dating benign findings, former nicotine dependence and multiple other medical issues, status post right total shoulder arthroplasty and oriented left little finger secondary to tripping on someone's foot and sustaining a fall 01/31/2022. Reports significant pain, currently receiving Dilaudid IV. Denies chest pain, palpitations or shortness of breath. Maintaining O2 sats in the high 90s on room air. Blood pressure controlled. Passing flatus. Significant clinical improvement. Pain controlled. Passing flatus. Denies chest pain, palpitations or shortness of breath. Maintaining O2 sats in the 90s on room air Participate with PT, denies lightheadedness dizziness or focal def icits. Denies nausea vomiting or diarrhea. Passing flatus. Afebrile, WBC 10.46. Hemoglobin 7.7, platelets 234. Renal function stable. Blood pressure soft. Objective - Vital Signs Vital signs: Vital Signs Temp 98.1 F 02/08/22 08:00 Pulse 71 02/08/22 08:00 Resp 14 02/08/22 08:00 BP 93/52 02/08/22 08:00 Pulse Ox 92 L 02/08/22 08:00 FiO2 Intake & Output 02/07/22 02/08/22 02/08/22 18:59 06:59 18:59 Other: Voiding Method Bedpan Toilet # Voids 6 6 - Exam PHYSICAL EXAM: VITAL SIGNS: As above GENERAL: Alert and oriented 3, Sitting up in bed, no acute distress. HEENT: Conjunctivae normal. eyes normal. NECK: No JVD. No thyroid enlargement. No LNs CARDIOVASCULAR: S1, S2 regular. No murmur RESPIRATION: Breath sounds diminished in the bases. No rhonchi or crackles.No bronchial breathing. ABDOMEN: Soft, nontender . No guarding. no masses palpable. Positive Bowel sounds. Extremities: Right upper extremity wearing sling, wound VAC present, left hand dressing clean dry and intact, positive radial pulses. Bilateral lower extremities- No edema. no swelling NERVOUS SYSTEM: Cranial N 2-12 grossly normal. No focal deficits. Strength and sensation grossly intact. Skin: Warm and dry, no rash - Labs CBC & Chem 7: 02/08/22 06:54 02/08/22 06:54 Labs: Abnormal Lab Results - Last 24 Hours (Table) 02/08/22 02/08/22 Range/Units 06:54 06:54 WBC 10.46 H (4.50-10.00) X 10*3/uL RBC 2.45 L (4.10-5.20) X 10*6/uL Hgb 7.7 L (12.0-15.0) g/dL Hct 23.9 L (37.2-46.3) % MCV 97.6 H (80.0-97.0) fL MPV 12.3 H (9.5-12.2) fL Neutrophils # 8.04 H (1.80-7.70) X 10*3/uL Monocytes # 1.11 H (0.20-1.00) X 10*3/uL Eosinophils # 0.03 L (0.04-0.35) X 10*3/uL Anion Gap 9.40 L (10.00-18.00) mmol/L Creatinine 0.4 L (0.6-1.5) mg/dL BUN/Creatinine Ratio 23.50 H (12.00-20.00) Ratio Assessment and Plan Assessment: Status-post reverse right total shoulder arthroplasty and ORIF left little finger , secondary to sustaining a comminuted humeral neck fracture, fracture of the neck of the head of the middle phalanx little finger of the left hand- reported per radiology studies ,status post fall on 01/31/2022. Reports she tripped over another person's foot and fell. Hypertension Hyperlipidemia Prior nicotine dependence Plan: Continue on current medication regime ,monitoring and symptomatic treatment. Blood pressures soft, recommend patient hold home medication - lisinopril -reevaluate outpatient in clinic with PCP for further recommendations. Maintain aggressive pulmonary toileting with incentive spirometer reinforced. Pain management, DVT prophylaxis as per orthopedic surgery. Significant clinical improvement -discharge planning in progress for today as per primary. Follow-up with PCP in 1 week. The impression and plan of care has been dictated as directed. : I performed a history and examination of this patient, discussed the same with the dictator. I agree with the dictator's note ,documented as a scribe. Any additional findings or plans will be noted.
[2022-02-08 16:00] VITALS: BP 94/55; PULSE 99; TEMP 97.6
--- NOTE | 2022-02-16 19:37 | P.OP ---
Date of Procedure: 02/06/22 Preoperative Diagnosis: right proximal humerus fracture, 4 part displaced Postoperative Diagnosis: same Procedure(s) Performed: Right reverse total shoulder arthroplasty Implants: [employer] Reverse, 24mm baseplate, 20 central screw, 36mm +4 glenosphere, size 10 stem, 135 deg neutral, +3 poly Anesthesia: lidya DELGADO Surgeon: Deanna Sosa Technical Document Writer #1: Teresita Lyons Estimated Blood Loss (ml): 150 Condition: stable Disposition: PACU Indications for Procedure: Annamarie is a 76 year female who tripped and fell on bilateral arms. On the right she sustained a displaced 4 pt proximal humerus fracture. On the left, she has a displaced/transverse small finger middle phalanx fracture. We talked about treatment options for both and she would like to proceed with a right reverse total arthroplasty and fORIF of the left SF. Description of Procedure: The patient and procedures were identified in the preop holding area. After informed consent was obtained, she recieved an interscalene block from the anesthesia team on the right side. She was then brought back to the OR. We started with the left side. The upper extremtiy was prepped and draped in normal sterile fashion. After a formal time-out was performed, a digital block was performed and a finger tourniquet applied. A 2.5mm headless compression screw was originally going to be used but the screw was laid overtop and looked much too big for her intramedullary canal. The decision was then make to pin the fracture instead. A 4.5 K wire was used in a retrograde fashion to reduce and pin the fracture. This was cut just below the level of her skin. The pin hole was dressed with adaptive, 4x4 and coban. We then repositioned the patient into a beachchair position for the right side. The extremity was prepped and draped in normal sterile fashion with ioban covering the axillary recess. An oblique incision was used for a deltopectoral approach. The cephalic vein was identified and mobilized laterally. The deltopectoral interval was developed to expose the clavipectoral fascia. The was opened lateral to the conjoined tendon and a kobell retractor gently placed. The biceps tendon was identified in the bicepital groove and released. It was then tenodesed to the surrounding soft tissue with 0 vicryl. The lesser tuberosity fracture was then mobilized. A fiber loop from the fracture fix kit was utilized to tag the subscapularis and lesser. The greater tuberosity was then mobilized and tagged in the same way. The biceps tendon was then followed to the glenoid. The tendon attachment and labrum was removed from the face of the glenoid. A scraping tool was used to remove the cartilage. A glenoid guide placed in line with the inferior aspect of the glenoid and the central guide wire was inserted bicortically. This measured 20mm. Two serial reamers were then used over the guidewire until bleeding bone was visualized. The baseplate with a 20mm central screw was inserted. The appropriately sized peripheral screws were inserted. The glenosphere was then impacted onto the baseplate. This was tested and was very secure. Attention was then turned back to the humerus. Serial reamers and serial broaches were inserted with 30 degrees of retroversion until the size 10 was deamed appropriate and had good fixation. This was trialed and the neutral poly had good range of motion and stability. Two hole were drilled in the humeral shaft and two fiberwire sutures were threaded through. The final implant was then press fit. The tray and neutral liner were then inserted. The implants and wound were thoroughly irrigated with normal saline using a pulse lavage. The joint was reduced and fibertape was threaded through the letter and greater tuberosities. They were then threaded through the holes in the tray. An around the [place] repair was performed with the fiber tape sutures securing the lesser, greater, and the shaft together. Gentle range of motion of the shoulder demonstrated all three pieces moving as a unit. The deltopectoral interval was closed with a 3.0 vicryl suture. The remainder of the wound was closed in a layered fashion with vicryl, monocryl, skin glue, and a prevena vac. Patient was placed in a sling and she was aroused by the anesthesia team. She was then brought to PACU in stable condition.
== END 2022-02-08 15:59 | disposition home health service (06) ==
LOC: OR 11:30 → 4SSUR 15:55 → OR 02-07 08:05
PROVIDERS: ADMIT Orthopaedic Surgery Hand Surgery; ATTEND Orthopaedic Surgery Hand Surgery
DX: S42.241A 4-part fracture of surgical neck of right humerus, initial encounter for closed fracture (principal); S62.627A Displaced fracture of middle phalanx of left little finger, initial encounter for closed fracture; G89.18 Other acute postprocedural pain; I10 Essential (primary) hypertension; E78.5 Hyperlipidemia, unspecified; M81.0 Age-related osteoporosis without current pathological fracture; Z87.891 Personal history of nicotine dependence; Z80.9 Family history of malignant neoplasm, unspecified; Z79.82 Long term (current) use of aspirin; Z79.899 Other long term (current) drug therapy; W18.09XA Striking against other object with subsequent fall, initial encounter
CPT/HCPCS: 96374; 97116; 97162; 97535; 97166; 64415; 76942; 88305; 80048; 85025; 88311; 73020; 23472; G0378 ×2; C1713; C1776; J2250; J0330; J1100; J0690 ×3; J2405; J3010; J2795; J2370; C9113; J1170 ×2; J2001; 96375

== ENCOUNTER 2023-07-16 15:47 | Observation (INO) | payer MEDICARE ==
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
[2023-07-16 17:03] LABS: Basophils % (A) 0 %; Eosinophils # (A) 0.1 k/uL (0-0.7); Eosinophils % (A) 1 %; HCT 39.9 % (34.0-46.0); HGB 13.2 gm/dL (11.4-16.0); Lymphocytes # (A) 0.8 k/uL (1.0-4.8); Lymphocytes % (A) 5 %; MCH 31.9 pg (25.0-35.0); MCV 96.8 fL (80.0-100.0); Mean Platelet Volume 9.9; Monocytes # (A) 0.3 k/uL (0-1.0); Monocytes % (A) 2 %; Neutrophils # (A) 13.7 k/uL (1.3-7.7); Neutrophils % (A) 92 %; Platelet Count 192 k/uL (150-450); RBC 4.13 m/uL (3.80-5.40); RDW 12.7 % (11.5-15.5); WBC 14.9 k/uL (3.8-10.6)
[2023-07-16 17:16] LABS: ALT 6 U/L (4-34); AST 27 U/L (14-36); African American GFR (CKD) >90 (>60 ml/min/1.73 sqM); Albumin 4.4 g/dL (3.5-5.0); Alkaline Phosphatase 118 U/L (38-126); Anion Gap 6 mmol/L; Blood Urea Nitrogen 16 mg/dL (7-17); Calcium 9.9 mg/dL (8.4-10.2); Carbon Dioxide 25 mmol/L (22-30); Chloride 106 mmol/L (98-107); Glucose 125 mg/dL (74-99); Non-African American GFR(CKD) >90 (>60 ml/min/1.73 sqM); Potassium 4.2 mmol/L (3.5-5.1); Sodium 137 mmol/L (137-145); Total Bilirubin 0.7 mg/dL (0.2-1.3); Total Protein 6.6 g/dL (6.3-8.2)
[2023-07-16 17:29] LABS: INR 0.9 (<1.2); Partial Thromboplastin Time 22.6 sec (22.0-30.0); Prothrombin Time 10.5 sec (10.0-12.5)
--- NOTE | 2023-07-16 18:45 | CT ---
EXAMINATION TYPE: CT abdomen pelvis w con DATE OF EXAM: 07/16/2023 COMPARISON: 06/20/2021 HISTORY: Abdominal pain, diarrhea, cramping, bright red blood in stool. CT DLP: 564.8 mGycm Automated exposure control for dose reduction was used. TECHNIQUE: Helical acquisition of images was performed from the lung bases through the pelvis. CONTRAST: Performed without Oral Contrast and with IV Contrast, patient injected with 100 ml mL of Isovue 300. FINDINGS: The lung bases are clear. The gallbladder is normal without distention, wall thickening, pericholecystic fluid or gallstones. T here is no biliary ductal dilatation. There is no focal mass or organomegaly involving the liver, pancreas, spleen or adrenal glands. There is no solid renal mass or hydronephrosis and there is homogeneous contrast enhancement of the r enal parenchyma. There are single tiny 1 to 2 mm nonobstructing renal calcifications bilaterally. The caliber the abdominal aorta is normal is no retroperitoneal adenopathy or hemorrhage. The bowel loops are normal in caliber and there is no evidence of dilatation or obstruction. No infla mmatory changes are identified in the bowel wall or mesentery. There is no free intraperitoneal air or fluid. No pelvic mass, free fluid, abscess or adenopathy. There are surgical absence of the uterus. The osseous structures and soft tissues are intact. IMPRESSION: No acute changes within the abdomen or pelvis.
[2023-07-16] MEDS ORDERED: ACETAMINOPHEN TAB 325 MG TAB PO PRN (19:55)
[2023-07-16] MEDS ORDERED: NALOXONE 0.4 MG/ML 1 ML VIAL IV PRN (19:55)
[2023-07-16] MEDS ORDERED: MORPHINE SULFATE 4 MG/ML SYRINGE IV PRN (19:55)
[2023-07-16] MEDS ORDERED: ONDANSETRON 4 MG/2 ML VIAL IVP PRN (19:55)
[2023-07-16] MEDS: SODIUM CHLORIDE 0.9% 1,000 ML IV SCH (20:24)
[2023-07-16] MEDS: PANTOPRAZOLE 40 MG/10 ML VIAL IV SCH (20:28)
[2023-07-16] MEDS: AMITRIPTYLINE HCL 25 MG TAB PO SCH (21:39)
[2023-07-17 00:23] LABS: HCT 35.4 % (34.0-46.0); HGB 11.9 gm/dL (11.4-16.0); MCH 32.3 pg (25.0-35.0); MCHC 33.6 g/dL (31.0-37.0); MCV 96.1 fL (80.0-100.0); Mean Platelet Volume 9.4; Platelet Count 200 k/uL (150-450); RBC 3.68 m/uL (3.80-5.40); RDW 12.8 % (11.5-15.5); WBC 10.4 k/uL (3.8-10.6)
[2023-07-17] MEDS: CHOLECALCIFEROL 25 MCG (1000 IU) TABLET PO SCH (08:16)
[2023-07-17] MEDS: MULTIVITAMINS, THERA 1 EACH TAB PO SCH (08:17)
[2023-07-17] MEDS: CARBIDOPA-LEVODOPA ER 50-200MG 1 EACH TABLET.ER PO SCH (08:20)
[2023-07-17 11:10] LABS: HCT 36.3 % (37.2-46.3); HGB 11.7 g/dL (12.0-15.0); MCH 31.1 pg (27.0-32.0); MCHC 32.2 g/dL (32.0-37.0); MCV 96.5 FL (80.0-97.0); Mean Platelet Volume 11.9 FL (9.5-12.2); NRBC Per 100 WBC 0 X 10*3/uL (0.00-0.01); Platelet Count 183 X 10*3/uL (140-440); RBC 3.76 X 10*6/uL (4.10-5.20); RDW 13.2 % (11.5-14.5); WBC 8.28 X 10*3/uL (4.50-10.00)
[2023-07-17 15:40] LABS: HCT 32.7 % (34.0-46.0); HGB 10.9 gm/dL (11.4-16.0); MCHC 33.2 g/dL (31.0-37.0); MCV 96.4 fL (80.0-100.0); Platelet Count 189 k/uL (150-450); RDW 12.7 % (11.5-15.5); WBC 6.8 k/uL (3.8-10.6)
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
[2023-07-17] MEDS: ATORVASTATIN 20 MG TAB PO SCH (19:00)
[2023-07-17] MEDS: lisinopriL 5 MG TAB PO SCH (20:42)
[2023-07-17] MEDS: hydrOXYzine HCL 25 MG TAB PO ONE (22:37)
[2023-07-18 08:47] VITALS: TEMP 97.4
[2023-07-18 10:29] VITALS: BP 123/72; PULSE 89; RESP 18
[2023-07-18 11:22] LABS: Basophils # (A) 0.03 X 10*3/uL (0.00-0.10); Basophils % (A) 0.4 %; Eosinophils # (A) 0.05 X 10*3/uL (0.04-0.35); Eosinophils % (A) 0.7 %; HCT 33.4 % (37.2-46.3); HGB 10.9 g/dL (12.0-15.0); Lymphocytes # (A) 1.91 X 10*3/uL (0.90-5.00); Lymphocytes % (A) 28.3 %; MCH 31.9 pg (27.0-32.0); MCHC 32.6 g/dL (32.0-37.0); MCV 97.7 FL (80.0-97.0); Mean Platelet Volume 12.1 FL (9.5-12.2); Monocytes # (A) 0.57 X 10*3/uL (0.20-1.00); Monocytes % (A) 8.4 %; NRBC Per 100 WBC 0 X 10*3/uL (0.00-0.01); Neutrophils # (A) 4.17 X 10*3/uL (1.80-7.70); Neutrophils % (A) 61.9 %; Platelet Count 194 X 10*3/uL (140-440); RBC 3.42 X 10*6/uL (4.10-5.20); RDW 13.1 % (11.5-14.5); WBC 6.75 X 10*3/uL (4.50-10.00)
[2023-07-18 11:46] LABS: Blood Urea Nitrogen 6.1 mg/dL (9.0-27.0); Calcium 9.5 mg/dL (8.7-10.3); Carbon Dioxide 24.7 mmol/L (21.6-31.8); Chloride 108 mmol/L (96-109); Glucose 90 mg/dL (70-110); Sodium 143 mmol/L (135-145)
--- NOTE | 2023-07-18 12:35 | P.DS ---
Providers Date of admission: 07/16/23 19:58 Expected date of discharge: 07/18/23 Attending physician: Neal Munson Consults: 07/16/23 19:55 Consult Physician Routine Consulting Provider: Polly Larios Consult Reason/Comments: gi bleeding Do you want consulting provider notified?: Yes Primary care physician: [facility] Course: Final Diagnoses: Acute hematochezia, positive stool for occult blood, probable ischemic colitis, etiology unclear, as per GI. Leukocytosis, resolved Hypertension Hyperlipidemia Former nicotine dependence Hospital course:This is a 78-year-old with past medical history of hyperlipidemia, hypertension, osteoarthritis, muscle skeletal disorder, syncope, osteoporosis, former nicotine dependence and multiple other medical issues, pres ented to the ER with complaints of severe cramping abdominal pain that began yesterday. Reported multiple bowel movements averaging every 4 hours. The last few bowel movements eventually presented with bright red blood streaks. Had 1 episode of nausea with no emesis. Denies fevers chills or sweats. Denied lightheadedness, dizziness or focal deficits. Denies syncope. Denies chest pain, palpitations or shortness of breath. Afebrile, lactic acid within normal limits. WBC on admission 14.9 currently WNL. Hemoglobin 13.2 decreased 11.7, platelets 192, decreased to 183. No further bowel movements since admission. Positive flatus.CT of abdomen and pelvis reported no acute changes within the abdomen or pelvis. Evaluated by GI with recommendations of conservative management- symptomatic and supportive care with significant clinical improvement. Suspect acute ischemic colitis, no indication for antibiotics or steroids as per GI. Patient will be discharged home today in a stable condition with guarded prognosis pending patient tolerates diet advancement at lunch, final DC clearance, follow-up appointment as per GI. The impression and plan of care has been dictated as directed. : I performed a history and examination of this patient, discussed the same with the dictator. I agree with the dictator's note ,documented as a scribe. Any additional findings or plans will be noted. Patient Condition at Discharge: Stable Plan - Discharge Summary New Discharge Prescriptions: Continue Aspirin 81 mg PO DAILY Atorvastatin [Lipitor] 20 mg PO DAILY@1830 Cholecalciferol (Vitamin D3) [Vitamin D3 (50 Mcg = 2000 Iu)] 150 mcg PO DAILY Multivit-Min/Iron/Folic/Lutein [Centrum Silver Women Tablet] 1 tab PO DAILY Amitriptyline HCl 25 mg PO HS lisinopriL [Zestril] 5 mg PO DAILY@1929 Carbidopa-Levodopa ER 50-200Mg [Sinemet CR 50-200 mg] 1 tab PO TID@0740,1140,1540 Discharge Medication List Aspirin 81 mg PO DAILY 12/05/13 [History] Amitriptyline HCl 25 mg PO HS 12/13/20 [History] Atorvastatin [Lipitor] 20 mg PO DAILY@18307/16/23 [History] Carbidopa-Levodopa ER 50-200Mg [Sinemet CR 50-200 mg] 1 tab PO TID@0740,1140,1540 07/16/23 [History] Cholecalciferol (Vitamin D3) [Vitamin D3 (50 Mcg = 2000 Iu)] 150 mcg PO DAILY 07/16/23 [History] Multivit-Min/Iron/Folic/Lutein [Centrum Silver Women Tablet] 1 tab PO DAILY 07/16/23 [History] lisinopriL [Zestril] 5 mg PO DAILY@192907/16/23 [History] Follow up Appointment(s)/Referral(s): Bandar Grewal Jr, [Primary Care Provider] - 3 Days
--- NOTE | 2023-07-18 12:46 | P.PN ---
Subjective Progress Note Date: 07/18/23 Principal diagnosis: Acute colitis This is a pleasant 78-year-old female who presented to the emergency department yesterday evening with complaints of abdominal cramping, diarrhea that then turned into bright red blood mixed in with her stool. She denies any previous history of GI bleed. No history of colitis. She denies any anticoagulation. States she had 3-4 episodes states she had diarrhea following abdominal pain and cramping, it then turned into 3-4 more episodes of abdominal pain and cramping followed by bright red blood mixed in her stool. She had a CT of her abdomen and pelvis which overall had no acute findings. Admitting labs patient had mild leukocytosis with WBC of 14.9 hemoglobin 13 platelet count 192,000. Stool occult blood positive. Repeat labs today WBC 8.2 hemoglobin 11.7 platelet count 183,000. She has not had any further bleeding since yesterday evening. She has had some mild lower abdominal cramping and passing flatus however no blood. No nausea or vomiting. Denies any fevers, chills, no recent sick contacts or recent travel. No recent antibiotic use. She does have a history of a colonoscopy within the last 3 years. She had a colonoscopy in November [address] Baires within normal colon, and internal hemorrhoids. 07/18/2023 Patient is seen and examined today as a follow-up. She states abdominal pain is gone, she has not had any further diarrhea or rectal bleeding. She states she is passing gas but that is all. Will have occasional little cramping but nothing significant. No nausea or vomiting. WBC 6.75 hemoglobin 10.9 platelet count 194,000 Objective - Vital Signs Vital signs: Vital Signs Temp 97.4 F L 07/18/23 07:00 Pulse 78 07/18/23 07:00 Resp 16 07/18/23 07:00 BP 172/68 07/18/23 07:00 Pulse Ox 98 07/18/23 07:00 FiO2 Intake & Output 07/17/23 07/18/23 07/18/23 18:59 06:59 18:59 Weight 53.524 kg Other: # Voids 3 - Exam General appearance: The patient is alert, oriented, appears in no acute distress. HET: Head is normocephalic and atraumatic. Conjunctiva pink. Sclera anicteric. Neck: Supple without lymphadenopathy. Abdomen: Soft, nontender, nondistended with bowel sounds. No guarding or rigidity. Extremities: Normal skin color and turgor. No pedal edema Skin: No rashes, no jaundice Neurological: No focal deficits. Alert and oriented. - Labs CBC & Chem 7: 07/18/23 06:22 07/18/23 06:22 Labs: Abnormal Lab Results - Last 24 Hours (Table) 07/17/23 07/17/23 Range/Units 07:02 15:07 RBC 3.76 L 3.40 L (4.10-5.20) X 10*6/uL Hgb 11.7 L 10.9 L (12.0-15.0) g/dL Hct 36.3 L 32.7 L (37.2-46.3) % Assessment and Plan (1) GI bleed Narrative/Plan: 78-year-old female presenting with abdominal cramping followed by diarrhea then bloody stool. Had several episodes of however improved now. No previous history of colitis or Crohn's. No recent sick contacts, no recent antibiotic use. No nausea or vomiting. Patient's afebrile, had mild leukocytosis however improved. Likely were dealing with an acute ischemic colitis unclear etiology. Symptoms have resolved. Will advance diet, there is no need for steroids or antibiotics. Continue symptomatic treatment, no plans on colonoscopy at this time. Patient can follow-up with gastroenterology in 2 to 4 weeks. Current Visit: Yes Status: Acute Code(s): K92.2 - GASTROINTESTINAL HEMORRHAGE, UNSPECIFIED SNOMED Code(s): 14897411 Plan: 1. Continue symptomatic and supportive care 2. Advance to low-fat diet 3. Pain medication as needed 4. Protonix 40 mg daily for GI prophylaxis 5. No plans on colonoscopy at this time 6. Likely acute ischemic colitis, no indication for antibiotics or steroids. 7. If patient tolerates diet she may be cleared by gastroenterology for discharge. She will need to follow-up in 2 to 4 weeks. Thank you for this consultation, we will continue to follow. Dr. Silvia Larios I agree with the dictator's note, documented as a scribe by Maria Del Carmen Palma.
== END 2023-07-18 14:25 | disposition home or self-care (01) ==
LOC: EC 15:47 → 6NMEDSUR 19:58
PROVIDERS: ADMIT Family Medicine; ATTEND Family Medicine
DX: K92.2 Gastrointestinal hemorrhage, unspecified (principal); R19.5 Other fecal abnormalities; D72.829 Elevated white blood cell count, unspecified; I10 Essential (primary) hypertension; E78.5 Hyperlipidemia, unspecified; M19.90 Unspecified osteoarthritis, unspecified site; R55 Syncope and collapse; M81.0 Age-related osteoporosis without current pathological fracture; Z79.82 Long term (current) use of aspirin; Z87.891 Personal history of nicotine dependence; Z79.899 Other long term (current) drug therapy
CPT/HCPCS: 96376 ×2; 96361; 96374; 99285; 36415; 86900; 86901; 80053; 80048; 83605; 84484; 85025 ×2; 85027; 85610; 85730; 86850; 82272; 74177; G0378 ×3; C9113 ×3; Q9967

== ENCOUNTER 2023-09-19 09:27 | Day surgery (SDC) | payer MEDICARE ==
[~2023-09-19 09:27] MED LIST changes: -DEXAMETHASONE SOD PHOSPHATE 4 MG/ML 1 ML VIAL IVP ONE; -LACTATED RINGERS 1,000 ML IV SCH; -MIDAZOLAM 2 MG/2 ML VIAL ONE; -ONDANSETRON 4 MG/2 ML VIAL IVP ONE; -PROPOFOL 10 MG/ML 20 ML VIAL IV ONE; -fentaNYL (PF) 50 MCG/ML 2 ML AMP ONE
[2023-09-19] MEDS: LACTATED RINGERS 1,000 ML IV SCH (11:21)
[2023-09-19 11:37] VITALS: TEMP 98.1
[2023-09-19] MEDS ORDERED: LIDOCAINE 1% INJ 10MG/ML (20 ML MDV) ONE (12:19)
[2023-09-19] MEDS ORDERED: PROPOFOL 10 MG/ML 20 ML VIAL IV ONE (12:19)
--- NOTE | 2023-09-19 12:42 | P.PCN ---
Date of Procedure: 09/19/23 Procedure(s) Performed: BRIEF HISTORY: Patient is a 78-year-old pleasant white female scheduled for an elective colonoscopy as a part of evaluation millimeter rectal bleeding. PROCEDURE PERFORMED: Colonoscopy. PREOPERATIVE DIAGNOSIS: Intermittent rectal bleeding. IV sedation per Anesthesia. PROCEDURE: After informed consent was obtained, the patient, was brought into the endoscopy unit. IV sedation was administered by Anesthesia under continuous monitoring. Digital rectal examination was normal. Initially the Olympus CF-160 flexible video colonoscope was then inserted in the rectum, gradually advanced into the cecum without any difficulty. Careful examination was performed as the scope was gradually being withdrawn. Ileocecal valve and the appendiceal orifice were visualized and appeared normal. Prep was excellent. Mucosa of the cecum, ascending colon, transverse colon, descending colon, sigmoid colon, and rectum appeared normal. Added sigmoid diverticulosis. Retroflexion was performed in the rectum and small internal hemorrhoids were seen. The patient tolerated the procedure well. IMPRESSION: Normal-appearing colon from rectum to cecum no evidence of colorectal neoplasia. Small internal hemorrhoids Scattered sigmoid diverticulosis RECOMMENDATIONS: Findings of this examination were discussed with the patient as well as her family. She was advised to be on a high-fiber diet and take fiber supplements on a regular basis..
[2023-09-19 13:22] VITALS: BP 136/70; PULSE 88; RESP 20
== END 2023-09-19 13:30 | disposition home or self-care (01) ==
LOC: ORWHC2ENDO 09:27
PROVIDERS: ATTEND Internal Medicine Gastroenterology
DX: K62.5 Hemorrhage of anus and rectum (principal); K57.30 Diverticulosis of large intestine without perforation or abscess without bleeding; K64.8 Other hemorrhoids; I10 Essential (primary) hypertension; E78.5 Hyperlipidemia, unspecified; Z87.891 Personal history of nicotine dependence; M19.90 Unspecified osteoarthritis, unspecified site; K21.9 Gastro-esophageal reflux disease without esophagitis; Z79.82 Long term (current) use of aspirin; Z90.49 Acquired absence of other specified parts of digestive tract; Z90.710 Acquired absence of both cervix and uterus; Z98.890 Other specified postprocedural states; Z79.899 Other long term (current) drug therapy
CPT/HCPCS: 45378; J2001; J2704

== ENCOUNTER 2023-11-21 22:16 | Emergency (ER) | payer MEDICARE ==
[2023-11-21 22:26] VITALS: TEMP 97.6
[2023-11-21] MEDS: SODIUM CHLORIDE 0.9% 1,000 ML IV STA (22:45)
[2023-11-21 22:51] LABS: Basophils # (A) 0.1 k/uL (0-0.2); Basophils % (A) 1 %; Eosinophils # (A) 0.1 k/uL (0-0.7); Eosinophils % (A) 2 %; HCT 43.6 % (34.0-46.0); HGB 13.6 gm/dL (11.4-16.0); Lymphocytes # (A) 2.8 k/uL (1.0-4.8); Lymphocytes % (A) 42 %; MCH 30.9 pg (25.0-35.0); MCHC 31.2 g/dL (31.0-37.0); Mean Platelet Volume 8.5; Monocytes # (A) 0.4 k/uL (0-1.0); Monocytes % (A) 6 %; Neutrophils # (A) 3.1 k/uL (1.3-7.7); Neutrophils % (A) 47 %; Platelet Count 211 k/uL (150-450); RBC 4.41 m/uL (3.80-5.40); RDW 12.9 % (11.5-15.5); WBC 6.6 k/uL (3.8-10.6)
[2023-11-21 23:00] LABS: Partial Thromboplastin Time 24.3 sec (22.0-30.0); Prothrombin Time 10.7 sec (10.0-12.5)
[2023-11-21 23:16] LABS: ALT 7 U/L (4-34); AST 26 U/L (14-36); African American GFR (CKD) >90 (>60 ml/min/1.73 sqM); Alkaline Phosphatase 66 U/L (38-126); Anion Gap 8 mmol/L; Blood Urea Nitrogen 19 mg/dL (7-17); Calcium 10.5 mg/dL (8.4-10.2); Carbon Dioxide 25 mmol/L (22-30); Chloride 105 mmol/L (98-107); Creatine Kinase 54 U/L (30-135); Glucose 96 mg/dL (74-99); Non-African American GFR(CKD) 89 (>60 ml/min/1.73 sqM); Potassium 4.2 mmol/L (3.5-5.1); Sodium 138 mmol/L (137-145); Total Bilirubin 0.5 mg/dL (0.2-1.3); Total Protein 7.2 g/dL (6.3-8.2)
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
[2023-11-22 00:08] LABS: Appearance,Urine Clear (Clear); Bilirubin,Urine Negative (Negative); Blood,Urine Trace (Negative); Color,Urine Colorless; Glucose,Urine (UA) Negative (Negative); Ketones,Urine Negative (Negative); Leukocyte Esterase,Urine Small (Negative); Nitrite,Urine Negative (Negative); PH, Urine 5.5 (5.0-8.0); Protein,Urine Negative (Negative); Specific Gravity,Urine 1.013 (1.001-1.035); Squamous Epithelial Cell,Urine <1 /hpf (0-4); Urobilinogen,Urine <2.0 mg/dL (<2.0); WBC,Urine 2 /hpf (0-5)
--- NOTE | 2023-11-22 00:49 | CT ---
EXAM: CT Head Without Intravenous Contrast CLINICAL HISTORY: Neuro deficit, acute, stroke suspected TECHNIQUE: Axial computed tomography images of the head/brain without intravenous contrast. CTDI is 48.8 mGy and DLP is 1180 mGy-cm. This CT exam was performed using one or more of the following dose reduction techniques: automated exposure control, adjustment of the mA and/or kV according to patient size, and/or use of iterative reconstruction technique. COMPARISON: No relevant prior studies available. FINDINGS: Limitations: There is motion artifact through the superior calvarium, which degrades image quality on multiple image slices. Brain: No definite intracranial hemorrhage, accounting for motion artifact. No mass effect. No evidence for cortical infarct. Mild prominence of the cerebral sulci and sylvian fissures. No significant white matter disease. Ventricles: No midline shift or ventriculomegaly. Bones/joints: No acute osseous abnormality suspected. Soft tissues: Unremarkable. Sinuses: Unremarkable as visualized. No acute sinusitis. Mastoid air cells: Unremarkable as visualized. No mastoid effusion. IMPRESSION: No definite acute intracranial process identified, accounting for mild motion artifact through the superior calvarium.
--- NOTE | 2023-11-22 00:53 | CT ---
EXAM: CT Angiography Head With Intravenous Contrast CLINICAL HISTORY: Neuro deficit, acute, stroke suspected TECHNIQUE: Axial computed tomographic angiography images of the head with intravenous contrast. CTDI is 6.9 mGy and DLP is 300.4 mGy-cm. This CT exam was performed using one or more of the following dose reduction techniques: automated exposure control, adjustment of the mA and/or kV according to patient size, and/or use of iterative reconstruction technique. MIP reconstructed images were created and reviewed. COMPARISON: Noncontrast examination performed earlier FINDINGS: Right internal carotid artery: No acute findings. Intracranial segment is patent with no significant stenosis. No aneurysm. Right anterior cerebral artery: Unremarkable. No occlusion or significant stenosis. No aneurysm. Right middle cerebral artery: Unremarkable. No occlusion or significant stenosis. No aneurysm. Right posterior cerebral artery: Unremarkable. No occlusion or significant stenosis. No aneurysm. Right vertebral artery: Unremarkable as visualized. Left internal carotid artery: No acute findings. Intracranial segment is patent with no significant stenosis. No aneurysm. Left anterior cerebral artery: Unremarkable. No occlusion or significant stenosis. No aneurysm. Left middle cerebral artery: Unremarkable. No occlusion or significant stenosis. No aneurysm. Left posterior cerebral artery: A left posterior communicating artery is noted. The left posterior cerebral artery is patent. No occlusion or significant stenosis. No aneurysm. Left vertebral artery: Unremarkable as visualized. Basilar artery: Unremarkable. No occlusion or significant stenosis. No aneurysm. Dural sinuses/cerebral veins: The dural sinuses are unremarkable. Brain: No abnormal parenchymal enhancement. IMPRESSION: Negative intracranial CTA examination. EXAM: CT Angiography Neck With Intravenous Contrast CLINICAL HISTORY: Neuro deficit, acute, stroke suspected TECHNIQUE: Routine carotid CT angiography protocol was performed with intravenous contrast. NASCET criteria using the distal ICAs for comparison were used for evaluation of stenoses. CTDI is 6.9 mGy and DLP is 300.4 mGy-cm. This CT exam was performed using one or more of the following dose reduction techniques: automated exposure control, adjustment of the mA and/or kV according to patient size, and/or use of iterative reconstruction technique. MIP reconstructed images were created and reviewed. COMPARISON: None. FINDINGS: VASCULATURE: Right common carotid artery: Unremarkable. No occlusion or significant stenosis. No dissection. Right internal carotid artery: Unremarkable. Extracranial segment is patent with no occlusion or significant stenosis. No dissection. Right external carotid artery: Unremarkable. No occlusion. Right vertebral artery: Unremarkable. No occlusion or significant stenosis. No dissection. Left common carotid artery: Unremarkable. No occlusion or significant stenosis. No dissection. Left internal carotid artery: Unremarkable. Extracranial segment is patent with no occlusion or significant stenosis. No dissection. Left external carotid artery: Unremarkable. No occlusion. Left vertebral artery: Unremarkable. No occlusion or significant stenosis. No dissection. Brachiocephalic and subclavian arteries: There is a bovine configuration of the proximal great vessels without significant ostial stenosis. Aorta: The aortic arch is patent without dissection. No significant aneurysm. NECK: Bones/joints: Unremarkable. No acute fracture. Soft tissues: Unremarkable. Lung apices: Clear. CAROTID STENOSIS REFERENCE USING NASCET CRITERIA: % ICA stenosis = (1 - narrowest ICA diameter/diameter of distal cervical ICA) x 100. Mild - <50% stenosis. Moderate - 50-69% stenosis. Severe - 70-94% stenosis. Near occlusion - 95-99% stenosis. Occluded - 100% stenosis. IMPRESSION: Negative cervical CTA examination.
--- NOTE | 2023-11-22 01:02 | XR ---
EXAM: XR Chest, 2 Views CLINICAL HISTORY: Altered mental status TECHNIQUE: Frontal and lateral views of the chest. COMPARISON: No relevant prior studies available. FINDINGS: Lungs: Unremarkable. No consolidation. The pulmonary vasculature demonstrates no significant radiographic abnormality. Pleural space: Unremarkable. No pneumothorax. No large pleural effusion. Heart: The cardiac silhouette is mildly prominent. Mediastinum: The mediastinal contours are grossly unremarkable, accounting for obliquity. No tracheal deviation. Bones/joints: A right total shoulder arthroplasty is noted. Scoliosis of the thoracic spine. There appears to be compression fractures in the mid thoracic spine region of indeterminant chronicity. IMPRESSION: 1. No focal airspace consolidation or evidence for florid CHF. No pleural effusion or pneumothorax. 2. Compression fractures of the mid thoracic spine are of indeterminant chronicity. Scoliosis. 3. Mild cardiomegaly of uncertain chronicity.
[2023-11-22] MEDS: ASPIRIN 325 MG TAB PO STA (01:19)
[2023-11-22 01:33] VITALS: BP 129/74; PULSE 84; RESP 18
== END 2023-11-22 01:32 | disposition home or self-care (01) ==
LOC: EC 22:16
DX: G45.9 Transient cerebral ischemic attack, unspecified (principal); Z87.891 Personal history of nicotine dependence
CPT/HCPCS: 36415; 93005; 80053; 82550; 85025; 85610; 85730; 71046; 70496; 70450; 70498; 99284; 96360; 96361; Q9967; 81001

== ENCOUNTER 2024-01-02 16:21 | Emergency (ER) | payer MEDICARE ==
[2024-01-02] MEDS ORDERED: CARBIDOPA-LEVODOPA 25-100 MG 1 EACH TAB ONE (16:52)
[2024-01-02] MEDS ORDERED: MORPHINE SULFATE 4 MG/ML SYRINGE ONE (16:52)
[2024-01-02] MEDS ORDERED: HYDROmorphone 1 MG/ML 1 ML SYRINGE ONE (18:57)
--- NOTE | 2024-02-05 11:40 | XR ---
Site ID [facility] Annamarie Tong ID [id number] Order # Procedure XR shoulder complete RT EXAMINATION TYPE: XR shoulder limited RT DATE OF EXAM: 01/03/2024 9:05 AM CLINICAL INDICATION: Pain COMPARISON: THIS EXAM WAS READ DURING PACS DOWNTIME, NO PRIORS AVAILABLE. TECHNIQUE: XR shoulder limited RT; examined in AP, internally rotated and scapular Y projections. FINDINGS/IMPRESSION: Acute right proximal humerus. Prosthetic fracture displacement of the fragments. The remainder of the osseous structures are intact.
--- NOTE | 2024-02-05 11:42 | XR ---
Site ID [facility] Annamarie Tong ID [id number] Order # Procedure XR LEFT KNEE 3V EXAMINATION TYPE: XR knee complete LT DATE OF EXAM: 01/03/2024 9:07 AM CLINICAL INDICATION: pain COMPARISON: THIS EXAM WAS READ DURING PACS DOWNTIME, NO PRIORS AVAILABLE. TECHNIQUE: XR knee complete LT; examined in Frontal, lateral and oblique projections. FINDINGS/IMPRESSION: 1. Femoral condyle step-off sterile on lateral view suggestive of fracture. Further evaluation with CT recommended. 2. Fixation lexx in the tibia appears intact.
--- NOTE | 2024-02-05 11:42 | XR ---
Site ID [facility] Annamarie Tong ID [id number] Order # Procedure XR TIBIA FIBIA LT EXAMINATION TYPE: XR tibia fibula LT DATE OF EXAM: 01/03/2024 9:09 AM CLINICAL INDICATION: Fall, pain COMPARISON: THIS EXAM WAS READ DURING PACS DOWNTIME, NO PRIORS AVAILABLE. TECHNIQUE: XR tibia fibula LT; examined in AP and lateral projections. FINDINGS/IMPRESSION: 1. No evidence of acute fracture. 2. Sedation hardware appears intact. No evidence for tibiofibular fracture. 3. Severe degeneration changes of the ankle.
--- NOTE | 2024-02-05 11:43 | XR ---
Site ID [facility] Patient Annamarie Bey ID [id number] Order # Procedure XR COMPLETE FOOT LT EXAMINATION TYPE: XR foot complete LT DATE OF EXAM: 01/03/2024 9:12 AM CLINICAL INDICATION: Pain, fall COMPARISON: THIS EXAM WAS READ DURING PACS DOWNTIME, NO PRIORS AVAILABLE. TECHNIQUE: XR foot complete LT examined in the AP, oblique, and lateral projections. FINDINGS: Diffuse osseous demineralization, this limits evaluation for fractures. No evidence of any acute osse ous pathology. Multifocal degeneration changes throughout the joints of the foot with osteophyte form ation and joint space narrowing. Calcaneal plantar spurring is present. Fixation hardware in the tibi a and appears intact. IMPRESSION: 1. No evidence of acute fracture. 2. Multifocal degeneration changes throughout the joints of the foot. 3. Diffuse osseous demineralization.
== END 2024-01-02 21:20 | disposition other institution (70) ==
LOC: EC 16:21
CPT/HCPCS: 96374; 96375; 99285

== ENCOUNTER → 2024-08-11 | Outpatient (CLI) | payer MEDICARE ==
--- NOTE | 2024-08-11 13:46 | US ---
EXAMINATION TYPE: US venous doppler duplex LE DATE OF EXAM: 08/11/2024 12:51 PM COMPARISON: NONE CLINICAL INDICATION: Female, 79 years old with history of L53.9 ERYTHEMATOUS CONDITION; pain, Pain TECHNIQUE: The lower extremity deep venous system is examined utilizing real time linear array sonog tommy with graded compression, color doppler sonography, and spectral doppler. SIDE PERFORMED: Bilateral FINDINGS: VESSELS IMAGED: Common Femoral Vein Deep Femoral Vein Greater Saphenous Vein * Femoral Vein Popliteal Vein Small Saphenous Vein * Proximal Calf Veins (* superficial vessels) Right Leg: Negative for DVT, Color Doppler imaging shows patency of the vessels. Spectral waveforms are within normal limits. Left Leg: Negative for DVT, Color Doppler imaging shows patency of the vessels. Spectral waveforms a re within normal limits. IMPRESSION: No ultrasound evidence for deep venous thrombosis. [facility], , 08/11/2024 1:44 PM
--- NOTE | 2024-08-11 13:47 | US ---
EXAMINATION TYPE: US arterial LE multi level DATE OF EXAM: 08/11/2024 1:38 PM COMPARISONS: None. CLINICAL INDICATION: Female, 79 years old with history of L53.9 ERYTHEMATOUS CONDITION; pain TECHNIQUE: Systolic pressures were taken of the upper and lower extremity arteries with ankle-brachia l indices and toe brachial indices calculated bilaterally. History of: Smoker: previous Hypertension: Yes Diabetic: No Hyperlipidemia: Yes TIA/CVA: No Previous Vascular Surgery: No CAD: No IN: No Vascular Ulcers: No Claudication: No Gangrene: No FINDINGS: Doppler Waveforms: Right: Monophasic Left: Monophasic Brachial Artery systolic pressure: Right: 123 Left: 122 Posterior Tibial artery systolic pressure: Right: 151 Left: 103 Dorsalis Pedis artery systolic pressure: Right: 143 Left: 111 Ankle-Brachial Indices: Right:1.16 Left: 0.90 (Normal > 0.6; Mild 0.35 - 0.59, Moderate 0.12 - 0.34, Severe <0.12) IMPRESSION: MARYANNE: Right: Normal 0.9 - 1.4, Recommendation: None Left: Normal 0.9 - 1.4, Recommendation: None [facility], , 08/11/2024 1:45 PM
== END | disposition home or self-care (01) ==
LOC: RADUSWWP 11:56
PROVIDERS: ATTEND Family Medicine
DX: L53.9 Erythematous condition, unspecified (principal); I10 Essential (primary) hypertension
CPT/HCPCS: 93923; 93970